=== PATIENT | female | born 1960 | race Caucasian/White ===

== ENCOUNTER 2022-11-04 15:19 | Emergency (ER) | payer MEDICARE, SELFPAY ==
[2022-11-04 15:21] VITALS: BP 187/99; PULSE 85; RESP 16; TEMP 35.6; O2SAT 98; BMI 34.9
--- NOTE | 2022-11-04 15:32 | EKG12_ITS ---
Test Reason : ANXIETY Blood Pressure : / mmHG Vent. Rate : 081 BPM Atrial Rate : 081 BPM P-R Int : 324 ms QRS Dur : 146 ms QT Int : 392 ms P-R-T Axes : 072 050 -11 degrees QTc Int : 455 ms Sinus rhythm with 1st degree A-V block Right bundle branch block T wave abnormality, consider inferior ischemia Abnormal ECG Confirmed by MARK REZA, DAMARIS ([id number]), editorial assistant NIDIA ADKINS ([id number]) on 11/06/2022 1:02:29 PM Referred By: Confirmed By:DAMARIS FLORES MD
--- NOTE | 2022-11-04 15:32 | CT_ITS ---
INDICATION: altered LOC EXAMINATION: CT BRAIN - CT Head or Brain W/O Contrast Injection TECHNIQUE: Multiple axial images were obtained of the head without intravenous contrast. A radiation dose optimization technique was used for this scan. IV Contrast dosage and agent: None. RADIATION DOSAGE (If Supplied By Facility): CTDIvol = ( 44.99 ) mGy, DLP = ( 779.24 ) mGycm COMPARISON: FINDINGS: BRAIN PARENCHYMA: No intra- or extra-axial hemorrhage. No evidence of acute infarct. No intracranial mass or mass effect. There is preservation of the shore/white matter interface. Posterior fossa demonstrates mild cerebellar atrophy. CSF SPACES: Appropriate for age. No hydrocephalus. Basal cisterns are patent. CALVARIUM, SKULL BASE, PARANASAL SINUSES AND MASTOID AIR CELLS: Clear. No discrete lytic or blastic abnormalities. ORBITS: Both globes, extraocular muscles, optic nerves and retrobulbar fat appear unremarkable. ASPECTS Score for Acute Strokes: 10 CT/Brain/Head without Contrast IMPRESSION: Mild cerebellar atrophy. Electronically Signed: Johan Sherman MD, NANETTE at 17:01 EDT ,
--- NOTE | 2022-11-04 15:34 | EX.ED.DYSGE1 ---
HPI History of Present Illness Chief Complaint: Anxiety Detail of Chief Complaint: Altered LOC Informant: patient and family Narrative Narrative: Patient presents via EMS secondary to altered LOC. Patient states that she has not felt well for the past 6 weeks or so. She has a history of SIADH and thought her electrolytes might be off. She has been drinking hot drinks that have electrolytes infused. She does not believe she is had her blood work checked during that time. Daughter states that she spoke with her mother this morning and she seemed very fatigued and tired. She thought she was too tired to go to work but ultimately later decided to go to work. Daughter went to her workplace to check on her and states that she was very fatigued and did not want to move her arms or legs. EMS was called. Daughter states that the patient has a history of PTSD and her brother has been recently contacting her. She states sometimes when she gets upset she will have reactions like this. She had a heart monitor placed recently as well. Her physicians are all through [facility] and patient has never been to this facility previously. [facility] Medical History (Updated 11/04/22 @ 19:[address] Shelby Gauthier MD) Afib Asthma Bipolar disorder Conversion disorder Diabetes High cholesterol Hx of gastroesophageal reflux (GERD) Hypertension PTSD (post-traumatic stress disorder) Right bundle branch block SIADH (syndrome of inappropriate ADH production) Home Medications alprazolam 0.5 mg tablet 0.5 mg PO DAILY PRN Anxiety 11/04/22 [History Last Taken Unknown] amitriptyline 25 mg tablet 25 mg PO QHS 11/04/22 [History Last Taken Unknown] amlodipine 5 mg tablet 5 mg PO DAILY 11/04/22 [History Last Taken Unknown] aspirin 81 mg chewable tablet 81 mg PO DAILY 11/04/22 [History Last Taken Unknown] atorvastatin 40 mg tablet 40 mg PO DAILY 11/04/22 [History Last Taken Unknown] cetirizine 10 mg tablet 10 mg PO DAILY 11/04/22 [History Last Taken Unknown] citalopram 10 mg tablet (Celexa) 20 mg PO DAILY 11/04/22 [History Last Taken Unknown] cyclobenzaprine 10 mg tablet 10 mg PO TID PRN muscle 11/04/22 [History Last Taken Unknown] dicyclomine 10 mg capsule 10 mg PO TID 11/04/22 [History Last Taken Unknown] famotidine 20 mg tablet (Pepcid) 20 mg PO BID 11/04/22 [History Last Taken Unknown] fluticasone furoate 50 mcg/actuation blister powder for inhalation 50 mcg inhalation DAILY 11/04/22 [History Last Taken Unknown] furosemide 40 mg tablet 40 mg PO DAILY PRN swelling 11/04/22 [History Last Taken Unknown] hydrocodone-acetaminophen 5-325mg 5mg-325mg 1 tab PO Q6H 11/04/22 [History Last Taken Unknown] levothyroxine 25 mcg tablet 25 mcg PO DAILY 11/04/22 [History Last Taken Unknown] metformin 1,000 mg tablet 1,000 mg PO BID 11/04/22 [History Last Taken Unknown] montelukast 10 mg tablet (Singulair) 10 mg PO QPM 11/04/22 [History Last Taken Unknown] risperidone 1 mg tablet (Risperdal) 1 mg PO DAILY 11/04/22 [History Last Taken Unknown] valproic acid 250 mg capsule 250 mg PO BID 11/04/22 [History Last Taken Unknown] Allergy/AdvReac Type Severity Reaction Status Date / Time lamotrigine [From Lamictal] Allergy Other Verified 11/04/22 15:21 omeprazole Allergy Swelling Verified 11/04/22 18:35 fenofibrate AdvReac Other Verified 11/04/22 18:35 pravastatin AdvReac Nausea Verified 11/04/22 18:35 promethazine AdvReac Other Verified 11/04/22 18:35 Surgical History History of History of partial hysterectomy Social History Smoking Status: Never smoker ROS ROS ED Constitutional Constitutional ED: Denies chills or fever(s) Eyes Eyes: Denies change in vision or discharge from eye(s) ENT ENT ED: Denies discharge from eye(s), rhinorrhea or sore throat Cardiovascular Cardiovascular: Denies chest pain or palpitations Respiratory/Chest Respiratory/Chest: Denies cough or dyspnea Gastrointestinal Gastrointestinal: Denies abdominal pain, nausea or vomiting Genitourinary Genitourinary ED: Denies difficulty urinating or dysuria Musculoskeletal Musculoskeletal: Denies back pain or extremity pain Integumentary Denies Abrasions or rash Neurologic Neurologic: Reports weakness and other Details: My head feels numb ; Denies headache(s) Endocrine Endocrinology: Denies polydipsia or polyuria Allergic/Immunologic Allergic/Immunologic ED: Denies lip swelling or urticaria EXAM Physical Exam Const Vital Signs: 11/04/22 15:21 11/04/22 15:25 11/04/22 17:45 Temperature 96.1 F L Temperature Source Temporal Pulse Rate 85 88 Respiratory Rate 16 18 Respiratory Effort Normal Non-Labored Respiratory Pattern Normal Blood Pressure 187/99 H 168/94 H Blood Pressure Mean 128 118 Pulse Ox 98 100 Oxygen Delivery Method Room Air Room Air 11/04/22 16:43 11/04/22 18:29 11/04/22 19:35 Temperature Temperature Source Pulse Rate 89 78 Respiratory Rate 20 H 18 Respiratory Effort Respiratory Pattern Blood Pressure 175/79 H 180/92 H 154/94 H Blood Pressure Mean 111 121 Pulse Ox 99 100 Oxygen Delivery Method Room Air Room Air Positive well nourished and well developed General Appearance ED: well developed HEENT Reports moist mucous membranes Eyes EOMs intact bilaterally Neck no lymphadenopathy Chest Wall inspection of chest normal and palpation of chest normal Resp normal respiratory effort and clear to auscultation bilaterally Cardio regular rate and regular rhythm GI normal to inspection, nondistended, normoactive bowel sounds Extremity normal to inspection Neuro Neuro Narrative: Patient rest with eyes closed but will open eyes and answer questions appropriately. She is somewhat slow to respond. She will follow commands such as raising her arms but does so slowly. She will have intermittent muscle jerks, but no seizure activity is noted. Psych Psych Narrative: Flat affect Mood & Affect: depressed Skin no rashes or lesions noted MDM MDM MDM Narrative Medical decision making narrative: Patient is placed on playground monitor. EKG obtained to evaluate for cardiac arrhythmia/ischemia. Chest x-ray obtained to evaluate for acute lung pathology, cardiac size, or mediastinal abnormality. Head CT obtained given the patient's altered LOC. Labwork obtained to evaluate for leukocytosis, anemia, and electrolyte derangement. Urinalysis obtained to evaluate for infection/hematuria. Lab Data Attestation: I reviewed the patient's lab results. Labs: Laboratory Results - last 24 hr 11/04/22 11/04/22 11/04/22 15:56 16:05 16:05 WBC 8.3 RBC 4.51 Hgb 14.3 Hct 41.0 MCV 90.9 MCH 31.7 MCHC 34.9 RDW Std Deviation 41.0 RDW Coeff of Alma 12.3 Plt Count 370 MPV 9.5 Immature Gran % (Auto) 0.200 Neut % (Auto) 60.9 Lymph % (Auto) 32.8 Dundy % (Auto) 4.6 Eos % (Auto) 1.0 Baso % (Auto) 0.5 Absolute Neuts (auto) 5.1 Absolute Lymphs (auto) 2.72 Nucleated RBC % 0 Sodium 130 L Potassium 3.9 Chloride 94 L Carbon Dioxide 25.0 Anion Gap 11 BUN 11 Creatinine 0.99 Estim Creat Clear Calc 52.34 Est GFR (MDRD) Af Amer 73 Est GFR (MDRD) Non-Af 60 BUN/Creatinine Ratio 11.1 Glucose 142 H Calcium 9.8 Magnesium 1.8 Total Bilirubin 0.50 Direct Bilirubin 0.16 AST 14 L ALT 28 Alkaline Phosphatase 69 Troponin I High Sens 4 Total Protein 8.3 H Albumin 4.3 Globulin 4.0 Urine Color Yellow Urine Clarity Clear Urine pH 7.0 Ur Specific Franklin 1.010 Urine Protein Negative Urine Glucose (UA) Normal Urine Ketones Negative Urine Occult Blood Negative Urine Nitrite Negative Urine Bilirubin Negative Urine Urobilinogen Normal Ur Leukocyte Esterase Negative Urine RBC 0 SEEN Urine WBC 0 SEEN Ur Squamous Epith Cells 0-5 SEEN Urine Bacteria 0 SEEN Urine Mucus 0 SEEN 11/04/22 18:24 WBC RBC Hgb Hct MCV MCH MCHC RDW Std Deviation RDW Coeff of [place] Plt Count MPV Immature Gran % (Auto) Neut % (Auto) Lymph % (Auto) Dundy % (Auto) Eos % (Auto) Baso % (Auto) Absolute Neuts (auto) Absolute Lymphs (auto) Nucleated RBC % Sodium Potassium Chloride Carbon Dioxide Anion Gap BUN Creatinine Estim Creat Clear Calc Est GFR (MDRD) Af Amer Est GFR (MDRD) Non-Af BUN/Creatinine Ratio Glucose Calcium Magnesium Total Bilirubin Direct Bilirubin AST ALT Alkaline Phosphatase Troponin I High Sens 4 Total Protein Albumin Globulin Urine Color Urine Clarity Urine pH Ur Specific Franklin Urine Protein Urine Glucose (UA) Urine Ketones Urine Occult Blood Urine Nitrite Urine Bilirubin Urine Urobilinogen Ur Leukocyte Esterase Urine RBC Urine WBC Ur Squamous Epith Cells Urine Bacteria Urine Mucus Radiography Chest X-Ray - ED: 1 View, Read by ED Physician, Chronic Changes and No Infiltrates Diagnostic Testing: Clinical Impression(s) from Imaging Studies Brain CT 11/04/22 15:32 IMPRESSION: Mild cerebellar atrophy. Electronically Signed: Johan Sherman MD, NANETTE at 17:01 EDT , Chest X-Ray 11/04/22 16:05 IMPRESSION: No radiographic evidence of acute cardiopulmonary disease. Electronically Signed: Bunny Gaitan MD at 16:24 EDT , EKG Initial EKG: Attestation: I personally reviewed and interpreted this EKG as follows: Interpretation: Sinus Rhythm (Sinus 81 with no acute ischemia. Right bundle branch block.) Treatment and Re-Evaluation :: CBC reveals normal white count and hemoglobin. No left shift. Chemistry studies significant for a sodium of 130 and a chloride of 94. I was able to review prior records from [facility]. It appears that her sodium runs between 127 and 130 at baseline. LFTs are unremarkable. Troponin is normal at 4. Urinalysis reveals no sign of infection. Portable chest x-ray per my interpretation was chronic changes with no focal infiltrate. Radiology interpretation is reviewed and agrees. CT scan of the head reveals mild cerebellar atrophy. Is notified by nursing staff that the patient was complaining of slight chest pain. She Ambulated to the restroom and this actually improved her pain. Nursing staff did note that she was having a few more PVCs on cardiac monitoring. 2-hour delta troponin is obtained and again returns at 4. At this time the patient is more alert and conversant. She actually brings up that she has had conversion disorder in the past and is wondering if this is what has occurred again. She does report some increased emotional stressors over the past week. She will be given counseling center information for follow-up as needed. Daughter feels comfortable taking her home. Return instructions given Discharge Plan Triage Chief Complaint: Anxiety ED Provider: Shelby Gauthier Dx/Rx/DC Orders Clinical Impression: Altered consciousness, Fatigue Instructions: ED ALOC Prescriptions: No Action alprazolam 0.5 mg tablet 0.5 mg PO DAILY PRN (Reason: Anxiety) amitriptyline 25 mg tablet 25 mg PO QHS amlodipine 5 mg tablet 5 mg PO DAILY cyclobenzaprine [Flexeril] 10 mg Tablet 10 mg PO TID PRN (Reason: muscle ) furosemide 40 mg Tablet 40 mg PO DAILY PRN (Reason: swelling) cetirizine 10 mg Tablet 10 mg PO DAILY citalopram [Celexa] 10 mg Tablet 20 mg PO DAILY hydrocodone-acetaminophen 5-325 mg tablet 1 tab PO Q6H Label Comments: take 1 tablet by mouth every 6 hours if needed levothyroxine 25 mcg tablet 25 mcg PO DAILY Label Comments: take 1 tablet by mouth every morning famotidine [Pepcid] 20 mg Tablet 20 mg PO BID aspirin [Baby Aspirin] 81 mg Tablet,Chewable 81 mg PO DAILY dicyclomine [Bentyl] 10 mg Capsule 10 mg PO TID fluticasone furoate 50 mcg/actuation Blister With Device 50 mcg INHALATION DAILY atorvastatin 40 mg Tablet 40 mg PO DAILY valproic acid 250 mg Capsule 250 mg PO BID metformin 1,000 mg Tablet 1,000 mg PO BID montelukast [Singulair] 10 mg Tablet 10 mg PO QPM risperidone [Risperdal] 1 mg Tablet 1 mg PO DAILY Primary Care Provider: Marion Mcclellan Referrals: Counseling,Center [Group of Physicians] - As Needed NOT,DEFINED [Non-Staff] - Disposition Disposition: Home, Self Care Discharge Date/Time: 11/04/22 19:46
--- NOTE | 2022-11-04 16:05 | RAD_ITS ---
INDICATION: sob EXAMINATION/TECHNIQUE: X-RAY - XR Chest 1 View COMPARISON: FINDINGS: LINES/DEVICES: None. LUNGS: No consolidation, edema or effusion. No pneumothorax. MEDIASTINUM AND CARDIOVASCULAR STRUCTURES: Cardiac silhouette not enlarged. Central airways and mediastinal contour are unremarkable. BONES AND SOFT TISSUES: Unremarkable. RAD/Chest 1 View (Portable) IMPRESSION: No radiographic evidence of acute cardiopulmonary disease. Electronically Signed: Bunny Gaitan MD at 16:24 EDT ,
[2022-11-04 16:14] LABS: Bacteria 0 SEEN /hpf (None Seen); Mucous, Urine 0 SEEN /hpf (<or=2+); Red Blood Cells-Urine 0 SEEN /hpf (0-5); White Blood Cells 0 SEEN /hpf (0-5)
[2022-11-04 16:18] LABS: Absolute Lymphocyte Count 2.72 X10^3/uL (0.83-4.51); Absolute Neutrophil Count 5.1 X10^3/uL (2.0-7.7); Basophil# 0.04 X10^3/uL; Basophil% 0.5 % (0-1); Eosinophil# 0.08 X10^3/uL; Hemoglobin 14.3 g/dL (12.0-15.0); Lymphocyte # 2.72 X10^3/ul (0.83-4.51); Lymphocyte % 32.8 % (19-41); Mean Corp Hgb Conc 34.9 g/dL (32-36); Mean Corpuscular Hgb 31.7 pg (27.0-32.0); Mean Corpuscular Volume 90.9 fL (81-99); Mean Platelet Vol. 9.5 fl (6.2-12.0); Monocyte# 0.38 X10^3/uL; Monocyte% 4.6 % (0-10); NRBC Flagged by Analyzer 0 % (0-5); Neutrophil # 5.06 X10^3/uL (2.7-7.7); Neutrophil % 60.9 % (47-70); Platelet Count 370 K/mm3 (150-450); RBC Distribution Width CV 12.3 % (11.6-14.6); Red Blood Count 4.51 M/mm3 (4.2-5.4); White Blood Count 8.3 K/mm3 (4.4-11.0)
[2022-11-04 16:32] LABS: Color, Urine Yellow (Yellow); Glucose, Dipstick Normal (Normal); Ketone-Dipstick Negative (Negative); Leukocyte Esterase-Dipstick Negative /ul (Negative); Nitrite-Dipstick Negative (Negative); Occult Blood-Urine Negative /ul (Negative); Protein-Dipstick Negative (Negative); Urine Bilirubin Dipstick Negative (Negative); Urine Clarity Clear (Clear); Urine Urobilinogen Normal (Normal)
[2022-11-04 16:43] VITALS: BP 175/79; PULSE 89; RESP 20; O2SAT 99
[2022-11-04 16:46] LABS: Squamous Epithelial Cells - UA 0-5 SEEN /hpf (5-10)
[2022-11-04 17:08] LABS: AST(SGOT) 14 U/L (15-37); Alanine Aminotransfer ALT/SGPT 28 U/L (13-56); Albumin, Serum 4.3 g/dL (3.2-5.0); Alkaline Phosphatase 69 U/L (45-117); Anion Gap 11 (5-15); BUN 11 mg/dL (7-18); BUN/Creat Ratio 11.1 RATIO (10-20); Bilirubin, Direct 0.16 mg/dL (0.00-0.30); Calcium,Total 9.8 mg/dL (8.5-10.1); Chloride 94 mmol/L (98-107); Creatinine, Serum 0.99 mg/dL (0.55-1.02); EST Glomerular Filtration Rate 60 mL/min (>60); Est Glom Filt Rate - Afr Amer 73 mL/min (>60); Estimated Creatinine Clearance 52.34 ml/min; Glucose 142 mg/dL (74-106); Magnesium 1.8 mg/dL (1.6-2.6); Potassium 3.9 mmol/L (3.5-5.1); Protein, Total 8.3 g/dL (6.4-8.2); Sodium Level 130 mmol/L (136-145); Troponin-I HS 4 pg/mL (3.0-54.0)
[2022-11-04 17:45] VITALS: BP 168/94; PULSE 88; RESP 18; O2SAT 100
[2022-11-04 18:29] VITALS: BP 180/92; PULSE 78; RESP 18; O2SAT 100
[2022-11-04 18:53] LABS: Troponin-I HS 4 pg/mL (3.0-54.0)
[2022-11-04 19:35] VITALS: BP 154/94
== END 2022-11-04 19:46 | disposition home or self-care (01) ==
PROVIDERS: Emergency Provider Emergency Medicine; PCP Family Medicine; Visit Provider Emergency Medicine
DX: R55 Syncope and collapse (principal); E11.9 Type 2 diabetes mellitus without complications; F41.9 Anxiety disorder, unspecified; I10 Essential (primary) hypertension; E78.00 Pure hypercholesterolemia, unspecified; R53.83 Other fatigue; J45.909 Unspecified asthma, uncomplicated; Z79.82 Long term (current) use of aspirin; Z79.84 Long term (current) use of oral hypoglycemic drugs; Z79.899 Other long term (current) drug therapy
CPT/HCPCS: 70450; 71045; 80048; 80076; 81001; 83735; 84484; 85025; 93005; 99285; A4216

== ENCOUNTER → 2025-04-14 | Outpatient (CLI) | payer MEDICARE, SELFPAY ==
--- NOTE | 2025-04-14 15:01 | BI_ITS ---
EXAM: SCRN MAMM (CAD)W/BUSHRA BILAT DATE: 04/14/2025 CLINICAL HISTORY: F, Age 65 y/o , SCREENING Personal history of breast cancer. Prior right mastectomy and tram flap reconstruction.. Left breast reduction. Sister with breast cancer. Aunt breast cancer. TECHNIQUE: Procedure Code: [id number] Modality: MG Procedure: SCRN MAMM (CAD)W/BUSHRA BILAT COMPARISON: Prior exam(s) dated November 29, 2021.. FINDINGS: TISSUE DENSITY: The breasts are heterogeneously dense, which may obscure small masses. Bilateral Breast Mammographic Findings: No significant masses, calcifications or other abnormalities are identified. Stable bilateral benign-appearing axillary lymph nodes. No suspicious masses, areas of developing architectural distortion, or suspicious calcifications. There has been no significant interval change. BI/SCRN MAMM (CAD)W/BUSHRA BILAT IMPRESSION: Stable bilateral screening mammogram. OVERALL FINAL ASSESSMENT BI-RADS 2: BENIGN RECOMMENDATION: Routine annual follow-up in 1 Year Additional Recommendation none A letter with findings and recommendations will be mailed to the patient. Reading Location: [id number]
== END | disposition home or self-care (01) ==
LOC: OPBI 15:00
PROVIDERS: PCP Family Medicine; Referring Provider Family Medicine; Visit Provider Family Medicine
DX: Z12.31 Encounter for screening mammogram for malignant neoplasm of breast (principal)
CPT/HCPCS: 77063; 77067